=== PATIENT | male | born 1995 | race African-American/Black ===

== ENCOUNTER 2017-01-11 15:57 | Emergency (ER) | payer OTHER ==
[~2017-01-11] VITALS: Ht 180.3 cm; Wt 124.5 kg
[2017-01-11 16:08] VITALS: Ht 180.3 cm; Wt 124.5 kg
[2017-01-11] MEDS ORDERED: HYDROCODONE/APAP (5/325) TAB PO ONE ×2 (17:30→19:00)
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
--- NOTE | 2017-01-11 19:26 | RADRPT ---
PROCEDURE: XR Hand. CLINICAL INDICATION: Injury TECHNIQUE: Three views of the right hand were obtained. COMPARISON: No prior studies are available for comparison. FINDINGS: There is a comminuted fracture of the second metacarpal neck noting angulation of the distal fragmen t by approximately 37 degrees. The remaining osseous structures are intact. The articular surfaces are preserved. There is no radiopaque foreign body. IMPRESSION: 1. Comminuted, minimally displaced fracture of the second metacarpal neck noting mild volar angulat ion of the distal fragment. RPTAT: RR .Sam Mata MD, MD Date Time Electronically viewed and signed by .Sam Mata MD, on 01/11/2017 19:25 .d/
[2017-01-11] MEDS ORDERED: HYDR-906 PO (19:46)
[2017-01-11 20:13] VITALS: BP 117/70; PULSE 77; RESP 18; TEMP 98.4
== END 2017-01-11 20:14 | disposition home or self-care (01) ==
LOC: FTE 15:57
DX: S62.300 Unspecified fracture of second metacarpal bone, right hand (principal); X58.XXXD Exposure to other specified factors, subsequent encounter
CPT/HCPCS: 29125; 73130; Z7610